=== PATIENT | female | born 1945 | race African-American/Black ===

== ENCOUNTER → 2017-08-25 | Outpatient (CLI) | payer MEDICARE, MEDICAID | END | disposition home or self-care (01) | LOC: NM 07:23 | PROVIDERS: ATTEND Internal Medicine Geriatric Medicine | DX: Z12.31 Encounter for screening mammogram for malignant neoplasm of breast (principal); Z13.820 Encounter for screening for osteoporosis; E11.9 Type 2 diabetes mellitus without complications; M85.88 Other specified disorders of bone density and structure, other site; I10 Essential (primary) hypertension; R07.9 Chest pain, unspecified | CPT/HCPCS: 77080; 78452; A9500; G0202 ==